=== PATIENT | male | born 1950 | race Caucasian/White ===

== ENCOUNTER 2018-11-11 05:35 | Outpatient (CLI) | payer MEDICARE ==
[~2018-11-11] VITALS: Ht 188 cm; Wt 97.5 kg
[~2018-11-11 05:35] MED LIST: CALC-794 PO; CHOL50003 PO; HYDR25TA4 PO; KRIL1CAP12 PO; LEVO200T6 PO; LOSA50TA6 PO; LYSI500T13 PO; NAPR-248 PO; NIAC-4 PO
[2018-11-11] MEDS ORDERED: LOSA50TA63 PO (10:06)
[2018-11-11] MEDS ORDERED: LEVO125T6 PO (10:06)
[2018-11-11] MEDS ORDERED: TAMS0.4C98 PO (10:06)
[2018-11-11] MEDS ORDERED: NAPR-1070 PO (10:06)
[2018-11-11] MEDS ORDERED: LUTE1CAP4 PO (10:17)
[2018-11-11] MEDS ORDERED: CLOM50CA2 PO (10:17)
[2018-11-11] MEDS ORDERED: CHOL20002 PO (10:17)
[2018-11-11] MEDS ORDERED: FISH1CAP15 PO (10:17)
[2018-11-11] MEDS ORDERED: LYSI500T37 PO (10:17)
[2018-11-11] MEDS ORDERED: MULT-178 PO (10:17)
[2018-11-11] MEDS ORDERED: MAGN250T13 PO (10:17)
[2018-11-11] MEDS ORDERED: GLUC1TAB20 PO (10:17)
[2018-11-11] MEDS ORDERED: CALC-823 PO (10:17)
[2018-11-11] MEDS ORDERED: NIAC10002 PO (10:17)
== END 2018-11-11 11:33 | disposition home or self-care (01) ==
LOC: PREOP 05:35
PROVIDERS: ATTEND Surgery
DX: Z01.818 Encounter for other preprocedural examination (principal)

== ENCOUNTER 2018-11-16 09:25 | Day surgery (SDC) | payer MEDICARE ==
[2018-11-16] VITALS (19 sets, daily range): BP systolic 119–173; BP diastolic 70–94
[~2018-11-16] VITALS: Ht 188 cm; Wt 97.5 kg
[~2018-11-16 09:25] MED LIST changes: +CALC-823 PO; +CHOL20002 PO; +CLOM50CA2 PO; +FISH1CAP15 PO; +GLUC1TAB20 PO; +LEVO125T6 PO; +LOSA50TA63 PO; +LUTE1CAP4 PO; +LYSI500T37 PO; +MAGN250T13 PO; +MULT-178 PO; +NAPR-1070 PO; +NIAC10002 PO; +NS IV 500 ML 500 ML ONE; +TAMS0.4C98 PO
[2018-11-16] MEDS ORDERED: NS IV 500 ML 500 ML IV PRN (09:32)
[2018-11-16] MEDS ORDERED: MIDAZOLAM 2 MG/2 ML (VERSED) VIAL IVP ONE (09:45)
[2018-11-16] MEDS ORDERED: LIDOCAINE JELLY 2% 6 ML SYRINGE MM PRN (09:45)
[2018-11-16] MEDS ORDERED: fentaNYL INJECTION 100 MCG/2 ML AMP IVP ONE (09:45)
[2018-11-16] MEDS ORDERED: LIDOCAINE JELLY 2% 6 ML SYRINGE ONE (10:32)
[2018-11-16] MEDS ORDERED: MIDAZOLAM 2 MG/2 ML (VERSED) VIAL ONE ×5 (10:33→12:01)
[2018-11-16] MEDS ORDERED: fentaNYL INJECTION 100 MCG/2 ML AMP ONE (10:33)
--- NOTE | 2018-11-16 10:43 | Conscious Sedation/ASA ---
Conscious Sedation Pre-Proced Time 10:00 ASA Score 2 For ASA 3 and 4: Consider anesthesia and medical clearance. Also, for patients with a history of failed moderate sedation consider anesthesia. Airway Lungs Heart ASA score ASA 1: a normal healthy patient ASA 2: a patient with a mild systemic disease (mid diabetes, controlled hypertension, obesity ASA 3: a patient with a severe systemic disease that limits activity (angina, COPD, prior Myocardial infarction) ASA 4: a patient with an incapacitating disease that is a constant threat to life (CHF, renal failure) ASA 5: a moribund patient not expected to survive 24 hrs. (ruptured aneurysm) ASA 6: a declared brain- patient whose organs are being harvested. For emergent operations, add the letter E after the classification Mallampati Classification Grade 2 Sedation Plan Analgesia, Amnesia, Plan communicated to team members, Discussed options with patient/fam, Discussed risks with patient/fam The patient is an appropriate candidate to undergo the planned procedure, sedation, and anesthesia. The patient immediately re-assessed prior to indication. KYLE HUBER MD Nov 16, 2018 10:43
--- NOTE | 2018-11-16 10:44 | Progress Note-Pre Operative ---
Pre-Operative Progress Note H&P Reviewed The H&P was reviewed, patient examined and no changes noted. Date Seen by Provider: Nov 16, 2018 Time Seen by Provider: 10:00 Date H&P Reviewed: Nov 16, 2018 Time H&P Reviewed: 10:00 Pre-Operative Diagnosis: family hx colon ca KYLE HUBER MD Nov 16, 2018 10:44
[2018-11-16] MEDS ORDERED: morphine INJ 10 MG/ML 1ML (SYR OR VIAL) IVP PRN (10:45)
[2018-11-16] MEDS ORDERED: ONDANSETRON 4 MG/2 ML (SDV) Z0FRAN IVP PRN (10:45)
[2018-11-16] MEDS ORDERED: HYDROcodone/APAP 5 MG/325 MG (LORTAB) TAB PO PRN (10:45)
--- NOTE | 2018-11-16 10:46 | Discharge Inst-Surgical ---
D/C Lap Instructions-CECILE Follow Up Appt in 2 weeks Activity as tolerated High Fiber Diet 25g or more per day Avoid Alcohol, Caffeine, Spicy [place] and Acid foods. Drink 64 fluid oz or more of fluids per day. Symptoms to Report: Fever over 101 degree F, Nausea/Vomiting If any problems/questions: Contact your physician or go to Emergency Room KYLE HUBER MD Nov 16, 2018 10:46
--- NOTE | 2018-11-16 12:42 | Progress Note-Post Operative ---
Post-Operative Progess Note Surgeon (s)/Pharmacognosy Teacher (s) Surgeon KYLE HUBER MD Pharmacognosy Teacher: none Pre-Operative Diagnosis family hx colon ca Post-Operative Diagnosis mild chronic stage 2 ext and int hemorrhoids, mild sigmoid diverticulosis. Procedure & Operative Findings Date of Procedure 11/16/18 Procedure Performed/Findings colonoscopy Anesthesia Type cs Estimated Blood Loss Estimated blood loss (mL): minimal Specimens/Packing Specimens Removed none KYLE HUBER MD Nov 16, 2018 12:41
--- NOTE | 2018-11-16 16:54 | OPERATIVE REPORT ---
DATE OF SERVICE: 11/16/2018 ATTENDING PRIMARY CARE PHYSICIAN: Jagdish Ferreira MD PREOPERATIVE DIAGNOSIS: Screening colonoscopy with a family history of colon cancer. POSTOPERATIVE DIAGNOSIS: Mild chronic stage II external and internal hemorrhoids, mild sigmoid diverticulosis. PROCEDURE: Colonoscopy. SURGEON: Kyle Huber MD ANESTHESIA: Conscious sedation. ESTIMATED BLOOD LOSS: Minimal. FINDINGS: Mild chronic stage II external and internal hemorrhoids, mild sigmoid diverticulosis. DISPOSITION: The patient tolerated the procedure well. INDICATIONS: The patient is a 68-year-old male known to us. We had seen him before in the past for screening colonoscopy, the last one was in 08/2013. He has a personal history of colon polyps as well as a family history of colon cancer with his father having the disease. He is otherwise doing well, does not have any major issues with diarrhea nor constipation as well as no red blood per rectum nor any dark tarry stools. DESCRIPTION OF PROCEDURE: The patient was brought to the endoscopy suite, laid in left lateral decubitus position. After adequate IV pain and sedative medications and conscious sedation anesthesia, a digital rectal examination was performed. Mild chronic stage II external and internal hemorrhoids were identified, which were not actively edematous nor inflamed and no bleeding. Normal sphincter tone was felt and there were no palpable masses. Prostate gland was palpable and appeared normal. The endoscope was then intubated into the anus and rectum gently insufflated. The endoscope was then advanced through the valves of [place] of the rectum with no polyps or any neoplasms identified. Through the sigmoid colon, mild sigmoid diverticulosis identified. There were no mucosal inflammatory changes to indicate any active diverticulitis. The endoscope was then advanced through the remainder of the descending, transverse and ascending colon to the cecum. These segments were normal. There were no polyps or any neoplasms identified. The endoscope was then slowly withdrawn while taking a second look and suctioning of residual air with no additional findings. The patient tolerated the procedure well. We will recommend continued medical management with a high fiber diet with at least 30 grams of fiber daily as well as significant amounts of water to promote soft stools daily. He does not need another colonoscopy for another 5 years. Job ID: [id number] DocumentID: [id number] Dictated Date: 11/16/2018 12:24:16 Tester Waste Disposal Leakage Date: 11/16/2018 16:53:27 Dictated By: KYLE HUBER MD
== END 2018-11-16 13:20 | disposition home or self-care (01) ==
LOC: ENDO 09:25
PROVIDERS: ATTEND Surgery
DX: Z12.11 Encounter for screening for malignant neoplasm of colon (principal); K64.1 Second degree hemorrhoids; K64.8 Other hemorrhoids; K57.30 Diverticulosis of large intestine without perforation or abscess without bleeding; E03.9 Hypothyroidism, unspecified; I10 Essential (primary) hypertension; F17.220 Nicotine dependence, chewing tobacco, uncomplicated; I25.2 Old myocardial infarction; Z90.49 Acquired absence of other specified parts of digestive tract; Z80.0 Family history of malignant neoplasm of digestive organs; Z82.49 Family history of ischemic heart disease and other diseases of the circulatory system

== ENCOUNTER 2019-04-17 13:37 | Outpatient (CLI) | payer MEDICARE ==
[~2019-04-17] VITALS: Ht 188 cm; Wt 93.2 kg
[~2019-04-17 13:37] MED LIST changes: -NS IV 500 ML 500 ML ONE; +PANT40TA2 PO; -TAMS0.4C98 PO; +TMSL.4C PO
[2019-04-17 13:40] VITALS: BP 143/83
[2019-04-17] MEDS ORDERED: NS IV 1000 ML 1,000 ML ONE (13:43)
[2019-04-17] MEDS ORDERED: NS IV 1000 ML 1,000 ML IV ONE (14:00)
[2019-04-17 15:58] LABS: ALANINE AMINOTRANSFERASE 41 U/L (0-55); ALKALINE PHOSPHATASE 39 U/L (40-136); BILIRUBIN,TOTAL 0.3 MG/DL (0.1-1.0); BUN/CREATININE RATIO 34; CALCIUM 7.7 MG/DL (8.5-10.1); CARBON DIOXIDE 23 MMOL/L (21-32); CHLORIDE 114 MMOL/L (98-107); CREATININE SERUM 0.97 MG/DL (0.60-1.30); GFR ESTIMATED > 60; GLUCOSE 82 MG/DL (70-105); POTASSIUM 3.9 MMOL/L (3.6-5.0); SODIUM 144 MMOL/L (135-145); TOTAL PROTEIN 5.1 GM/DL (6.4-8.2)
== END 2019-04-17 15:30 | disposition home or self-care (01) ==
LOC: SDC 13:37
PROVIDERS: ATTEND Family Medicine
DX: E86.0 Dehydration (principal); A05.9 Bacterial foodborne intoxication, unspecified
CPT/HCPCS: 36415; 80053; 96360

== ENCOUNTER → 2019-05-01 | Outpatient (CLI) | payer MEDICARE ==
--- NOTE | 2019-05-01 09:04 | Diagnostic Imaging Report ---
PROCEDURE: CT abdomen and pelvis without contrast. TECHNIQUE: Multiple contiguous axial images were obtained through the abdomen and pelvis without the use of intravenous contrast. Auto Exposure Controls were utilized during the CT exam to meet ALARA standards for radiation dose reduction. INDICATION: Left upper quadrant pain. Past surgical history includes cholecystectomy and hernia repair. FINDINGS: The lung bases are clear. The heart size is normal. The liver is normal in size without focal lesions. Gallbladder is surgically absent. There is no biliary ductal dilatation. Spleen is normal. Pancreas and adrenal glands are unremarkable. There are at least two small nonobstructing stones in the left kidney. There is no evidence of obstructive uropathy. The aorta is nonaneurysmal. The bowel gas pattern is nonspecific. There is no free air. There is no ascites. There are no focal inflammatory changes. There is no pelvic mass, adenopathy, or free fluid. Bladder is normal. Prostate is enlarged. There is a moderate amount of retained fecal material which may reflect some degree of constipation. There are degenerative changes in the spine particularly at L2-L3 and L5-S1. IMPRESSION: Moderate amount of retained fecal material possibly reflecting some degree of constipation. Two nonobstructing left renal calculi. Degenerative changes in the spine. No other acute abnormality in the abdomen or pelvis. Dictated by: Dictated on workstation # [id number]
== END ==
LOC: RAD 08:35
PROVIDERS: ATTEND Family Medicine
DX: K57.30 Diverticulosis of large intestine without perforation or abscess without bleeding (principal); K59.00 Constipation, unspecified; N20.0 Calculus of kidney
CPT/HCPCS: 74176

== ENCOUNTER → 2020-04-25 | Outpatient (CLI) | payer MEDICARE ==
--- NOTE | 2020-04-25 09:55 | Diagnostic Imaging Report ---
EXAMINATION: CT Abdomen Pelvis without contrast. TECHNIQUE: Multiple contiguous axial images were obtained through the abdomen and pelvis without the use of intravenous contrast. All CT scans use one or more of the following dose optimizing techniques: automated exposure control, MA and/or KvP adjustment based on a patient size and exam type, or iterative reconstruction. HISTORY: HEMATURIA COMPARISON: CT abdomen and pelvis 05/01/2019. FINDINGS: Lung bases: The lung bases are clear. Solid organs: The liver is normal. The gallbladder is surgically absent. There is no biliary ductal dilation. Pancreas is normal. Spleen is normal. Adrenal glands are normal. There are multiple nonobstructing left renal calculi measuring up to 0.3 cm. No hydronephrosis or hydroureter. The right kidney is unremarkable. Bowel: The stomach and small bowel are normal without obstruction. Scattered colonic diverticulosis. No findings of acute appendicitis. Peritoneum: There is no intraperitoneal free fluid or free air. No suspicious lymphadenopathy. Vasculature: Calcification of the aorta without aneurysm. Musculoskeletal: Degenerative changes without suspicious osseous lesion or compression fracture. Pelvis: The prostate gland is enlarged. The urinary bladder is normal. IMPRESSION: 1. Nonobstructing left renal calculi measuring up to 0.3 cm. No hydronephrosis or hydroureter. 2. No other acute abnormality in the abdomen or pelvis. 3. Colonic diverticulosis without findings of diverticulitis. Dictated by: Dictated on workstation # [id number]
== END ==
LOC: RAD 09:26
PROVIDERS: ATTEND Nurse Practitioner Family
DX: N20.0 Calculus of kidney (principal); K57.30 Diverticulosis of large intestine without perforation or abscess without bleeding
CPT/HCPCS: 74176

== ENCOUNTER → 2021-12-17 | Outpatient (CLI) | payer MEDICARE ==
[~2021-12-17] MED LIST changes: -GLUC1TAB20 PO; +GLUC1TAB21 PO
== END ==
LOC: CARD 13:00
PROVIDERS: ATTEND Internal Medicine Cardiovascular Disease
DX: I11.9 Hypertensive heart disease without heart failure (principal); I25.10 Atherosclerotic heart disease of native coronary artery without angina pectoris
CPT/HCPCS: 93306

== ENCOUNTER → 2022-05-13 | Outpatient (CLI) | payer MEDICARE, OTHER ==
[~2022-05-13] MED LIST changes: +CATHETER FLUSH 10 ML SYR IVP PRN
[2022-05-13 09:34] VITALS: BP 181/89
--- NOTE | 2022-05-13 13:59 | Cardiology Stress Test Report ---
Stress Test Report Date of Procedure/Referring: Date of Procedure: May 13, 2022 PCP Leah Savage MD Admitting Physician Admitting Physician: Attending Physician: Deirdre Rosenbaum Baseline Heart Rate: 61 Baseline Blood Pressure: Blood Pressure Systolic: 181 Blood Pressure Diastolic: 89 Vital Signs Date Time Temp Pulse Resp B/P (MAP) Pulse Ox O2 Delivery O2 Flow Rate FiO2 05/13/22 09:34 60 181/89 (119) Baseline Vital Signs Vital Signs Date Time Temp Pulse Resp B/P (MAP) Pulse Ox O2 Delivery O2 Flow Rate FiO2 05/13/22 09:34 60 181/89 (119) Baseline EKG: Baseline EKG: NSR Summary: After explaining the procedure and details to the patient, he signed the consent and was brought to the stress nuclear laboratory. Patient exercised on standard Barry protocol, EKG, heart rate and blood pressure were monitored continuously, resting and stress doses of radio tracer were injected, imaging was acquired and reviewed in the short axis, horizontal long axis and vertical long axis views Patient was able to exercise for a total of 6.30 minutes on Barry protocol, METs 7.9 Maximum heart rate 135 Maximum blood pressure 220/85 Stress EKG, Minimal nondiagnostic changes Recovery EKG, Return to baseline TID: 1.01 SSS: 5 SDS: 4 EF: 50 Conclusion: Good exercise tolerance for 6 minutes and 30 seconds on standard Barry protocol, 7.9 METS achieving 90% of maximum expected heart rate Appropriate heart rate response to exercise with hypertensive response to exercise with peak blood pressure 220/85 return to baseline during recovery Nondiagnostic EKG changes with exercise return to baseline during recovery Diaphragmatic attenuation with mild decrease uptake at the mid to apical anterolateral wall with mild reversibility, overall there is no significant ischemia or infarction on SPECT images Normal left ventricular size, normal contractility, ejection fraction 50% Copy Copies To 1: LEAH SAVAGE MD, BASHAR J MD May 13, 2022 13:59
== END ==
LOC: CARD 07:56
PROVIDERS: ATTEND Physician Assistant
DX: I10 Essential (primary) hypertension (principal); I25.10 Atherosclerotic heart disease of native coronary artery without angina pectoris
CPT/HCPCS: 78452; 93017; A9502

== ENCOUNTER 2022-12-30 14:09 | Outpatient (RCR) | payer MEDICARE, OTHER ==
[~2022-12-30 14:09] MED LIST changes: -CATHETER FLUSH 10 ML SYR IVP PRN
== END 2023-01-12 | disposition home or self-care (01) ==
PROVIDERS: ATTEND Orthopaedic Surgery Orthopaedic Surgery of the Spine
DX: M54.16 Radiculopathy, lumbar region (principal); M48.062 Spinal stenosis, lumbar region with neurogenic claudication